=== PATIENT | female | born 1985 | race Caucasian/White ===

== ENCOUNTER 2023-10-12 19:49 | Emergency (ER) | payer OTHER, SELFPAY ==
[2023-10-12 20:30] VITALS: BP 134/83; PULSE 74; RESP 12; TEMP 37.9; O2SAT 95; BMI 28.1
--- NOTE | 2023-10-12 20:51 | XR_ITS ---
Patient: HARINDER GUEVARA Facility:?[facility] RIS Patient ID:?[id number] Site Patient ID:?[id number]. Site :?[id number] Study:?XRay-Chest 2 VIEW-10/12/2023 9:01:54 PM Ordering Physician:?DR. AMEZQUITA Final Report: INDICATION: Cough TECHNIQUE: Chest 2 views. COMPARISON: None. FINDINGS: Cardiovascular and mediastinum: Heart size and vasculature are normal in caliber and appearance. Lungs and pleural spaces: Lungs are clear. No sign of infiltrate or mass. No sign of pleural effusion. No pneumothorax. Bones and soft tissues: No significant findings. IMPRESSION: No acute or significant findings. Dictated by Flakito Grace MD @ 10/12/2023 9:25:37 PM Signed by:?Flakito Grace MD @10/12/2023 9:25:37 PM (Electronic Signature)
--- OUTSIDE RECORDS SUMMARY | 2023-10-12 21:04 | XMS_ITS | Clinical Summary ---
Author Name Unknown Organization [facility] Address [address], [place] [address] Care Team Providers Care Embroidery Designer Name Role Phone Truong Dueñas MD Primary Care Provider [phone] Source Comments You are receiving this document as you are listed as the primary care provider,follow-up provider, or the patient has been referred to you for consultation.This is in compliance with the Medicare and[facility] E[facility] Incentive [facility],which states Providers who transition their patient to another setting of careor provider of care or refers their patient to another provider of care shouldprovide summary care record for each transition of care or referral. [facility] Allergies No known active allergies Medications Medication Sig Dispensed Refills Start Date End Date Status naproxen sodium (ALEVE) 220 MG tablet Take 1 tablet by mouth 2 times daily as needed. LW Addl Instr:Take with food. 02/08/2010 Active unknown medication Indications: PN: 02/08/2010 Active DRUG NOT IN COMPUTER LW Comment:vitamin d 100mg 02/08/2010 Active Cholecalciferol (VITAMIN D3) 5000 units TABS Take by mouth. 05/09/2017 Active Active Problems No known active problems Social History Tobacco Use Types Packs/Day Years Used Date Smoking Tobacco: Never Smokeless Tobacco: Never Alcohol Use Standard Drinks/Week Comments No 0 (1 standard drink = 0.6 oz pur e alcohol) Sex and Gender Information Value Date Recorded Sex Assigned at Not on file Gender Identity Not on file Sexual Orientation Not on file Last Filed Vital Signs Vital Sign Reading Time Taken Comments Blood Pressure 108/70 12/20/2017 4:42 PM CDT Pulse - - Temperature 36.6 ??C (97.8 ??F) 02/07/2022 12:47 PM C DT Respiratory Rate - - Oxygen Saturation - - Inhaled Oxygen Concentration - - Weight 86.2 kg (190 lb) 02/07/2022 12:47 PM CDT Height 167.6 cm (5' 6) 02/07/2022 12:47 PM CDT Body Mass Index 30.67 02/07/2022 12:47 PM CDT Plan of Treatment Health Maintenance Due Date Last Done Comments Cervical Cancer Screening Due 1985 Hep C Screening (Preventive Services) 1985 HIV Screening (Preventive Services) 2000 Adult Preventive Visit 01/08/2002 HepB (1) 01/08/2003 COVID-19 Vaccine ( - season) 2023 05/05/2021 Influenza (#1) 2023 03/09/2018, 02/12, 05/10/2016, Additional history exists DTaP/Tdap/Td (4 - Tdap) 01/04/2027 01/05/20 17, 02/15/2013, 10/20/2005 Zoster/Shingles (1 of 2) 01/08/2034 HPV Vaccine Aged Out No longer eligi ble based on patient's age to complete this topic HepA Aged Out No longer eligi ble based on patient's age to complete this topic Hib Aged Out No longer eligi ble based on patient's age to complete this topic IPV (Polio) Aged Out No longer eligi ble based on patient's age to complete this topic MCV4 Aged Out No longer eligi ble based on patient's age to complete this topic Pneumococcal Aged Out No longer eligi ble based on patient's age to complete this topic Care Teams Embroidery Designer Relationship Specialty Start Date End Date Truong Dueñas MD [facility] [place] [address] PCP - General Family Practice 12/20/17
--- OUTSIDE RECORDS SUMMARY | 2023-10-12 21:05 | XMS_ITS | Data Portability ---
Author Name Unknown Address [address] [place] [address] Phone [phone] Organization [place] NURSE INFORMATICS EDUCATOR, [id number] [facility] Address [address] [place] [address] Assessment Encounter Date Assessment Date Assessment LastModified by Organization Details LastModified Time 04/15/2021 04/15/2021 I spent a total of 30 minutes providing care for this patient including: preparing to see the patient, obtaining a medical history, completing a medically appropriate physical exam, completing documentation of visit information and plans in the EMR, counseling the patient and/or caregiver regarding her diagnosis, treatment options and follow up plans, as well as any necessary communication of subsequent test results to the patient, reviewing medical records, reviewing test results. ktoft Not available 04/16/2021 20:38:37 05/22/2021 05/22/2021 I spent a total of 35 minutes providing care for this patient including: preparing to see the patient, obtaining a medical history, completing a medically appropriate physical exam, completing documentation of visit information and plans in the EMR, counseling the patient and/or caregiver regarding her diagnosis, treatment options and follow up plans, as well as any necessary communication of subsequent test results to the patient, reviewing test results, reviewing medical records, reviewing consult notes ktoft Not available 05/22/2021 18:16:51 06/17/2021 06/17/2021 I spent a total of 30 minutes providing care for this patient including: preparing to see the patient, obtaining a medical history, completing a medically appropriate physical exam, completing documentation of visit information and plans in the EMR, counseling the patient and/or caregiver regarding her diagnosis, treatment options and follow up plans, as well as any necessary communication of subsequent test results to the patient, reviewing medical records, reviewing test results. ktoft Not available 06/18/2021 20:53:22 07/31/2021 07/31/2021 I spent a total of 10 minutes providing care for this patient including: preparing to see the patient, obtaining a medical history, completing a medically appropriate physical exam, completing documentation of visit information and plans in the EMR, counseling the patient and/or caregiver regarding her diagnosis, treatment options and follow up plans, as well as any necessary communication of subsequent test results to the patient, , , rroverud Not available 07/31/2021 16:03:29 03/24/2023 03/24/2023 I spent a total of 25 minutes providing care for this patient including: preparing to see the patient, obtaining a medical history, completing a medically appropriate physical exam, completing documentation of visit information and plans in the EMR, counseling the patient and/or caregiver regarding her diagnosis, treatment options and follow up plans, as well as any necessary communication of subsequent test results to the patient, , , rroverud Not available 03/24/2023 15:39:13 07/07/2023 07/07/2023 I spent a total of 20 minutes providing care for this patient including: preparing to see the patient, obtaining a medical history, completing a medically appropriate physical exam, completing documentation of visit information and plans in the EMR, counseling the patient and/or caregiver regarding her diagnosis, treatment options and follow up plans, as well as any necessary communication of subsequent test results to the patient, , , rroverud Not available 07/07/2023 15:14:42 Plan of Treatment Reminders Order Date Submit Date Provider Last Modified By Organization Details Last Modified Time Details Appointments None recorded. Lab bacterial vaginosis + vaginitis panel, vaginal 2023 024 [id number], [address] [facility], [address], [place], [address], 4 17:18:36 TSH, serum or plasma 2023 024 [facility], [address] [place] [address], [address], [place], [address], 4 15:10:34 hemoglobin A1c, QN, blood 2023 024 [facility], [address] [facility], [address], [place], [address], 4 15:10:32 bacterial vaginosis + vaginitis panel, vaginal 2023 024 [place] [id number] aska, [address], [address], [place], [address], 4 14:30:50 CT + NG DNA, PCR, unspecified specimen [address] aska, [address] [facility], [address], [place], [address], 3 16:34:27 HIV 1+2 AB + HIV 1 p24 Ag, qualitative immunoassay , serum 2022 023 [facility], [address] [facility], [address], [place], [address], 3 17:36:27 treponema pallidum Ab, qualitative , serum 2022 023 [facility], [address] [facility], [address], [place], [address], 3 17:36:26 bacterial vaginosis + vaginitis panel, vaginal [address] aska, [address], [address], [place], [address], 3 15:19:42 pathology study 2020 021 [facility], [address], [place], [address], 1 18:08:14 thyroid cascade, serum 2020 [facility], [address] [place], [address], 18:05:58 CMP, serum or plasma 2020 [facility], [address] [place], [address], 18:05:59 CBC 2020 [facility], [address] [place], [address], 18:05:57 iron panel, serum or plasma 2020 [facility], [address] [place], [address], 18:05:58 HPV DNA, high-risk 2020 [facility], [address] [place], [address], 08:52:57 pathology study 2020 [facility], [address] [place], [address], 17:03:58 culture, urine 2020 021 [facility], [address] [place], [address], 08:46:32 bacterial vaginosis + vaginitis panel, vaginal 2020 021 ktoft [id number] [place], [address] [facility], [address], [place], [address], 1 13:13:55 pathology study 2020 021 [facility], [address] [place], [address], 1 14:10:29 pathology study 2020 021 [facility], [address] [place], [address], 1 16:10:14 unlisted lab - HPV high risk DNA with 16/18 genotyping 2020 021 [facility], [address], [place], [address], 1 17:21:20 pap, LB 2020 021 [facility], [address], [place], [address], 1 17:21:22 Referral None recorded. Procedures None recorded. Surgeries robotic assisted hysterectom y with salpingecto my (SURG) 2020 022 [facility], [address] [place] [address] , [address], [place], [address], 2 16:19:05 Imaging US, pelvis 2022 023 [email or web address] [id number] aska, [address] [facility], [address], [place], [address], 3 15:29:55 Medication Orders Flagyl 500 mg tablet 2023 024 [email or web address] 1 [id number], [address] [place] [address] 3 , [place], [address], 4 09:42:14 oxycodone 5 mg tablet 2021 022 [id number] [id number], [address], [address], 09:04:19 spironolact one 50 mg tablet 2020 021 k[facility], [address] [facility] [address] [place], [address], 12:17:55 Patient TargetsNo targets recorded. Patient Instructions Encounter Date Encounter Id Patient Instructions Last Modified By Organization Details Last Modified Time 06/18/2020 [id number] - Encouraged breast self-awareness and monthly breast exams. - Calcium and vitamin D intake discussed. - Encouraged regular exercise. - Discussed cervical cancer screening guidelines. lucero Not available 06/18/2020 10:03:23 Reason for Referral None Reported. Results Created Date Observation Date Name Description Value Unit Range Abnormal Flag LastModifiedBy Organization Detail LastModifiedTime 06/18/1906/18/2020 HPV DNA, high- risk HPV high risk type 16 positi ve for HPV type 16. negati ve for HPV type 16. abnormal Not Available [facility] [address] [place], [address], 06/25/2020 17:21:19 06/18/19 21 06/18/2020 HPV DNA, high- risk HPV high risk type 18 negati ve for HPV type 18. negati ve for HPV type 18. Not Available [facility] [address] [place], [address], 06/25/2020 17:21:19 06/18/19 21 06/18/2020 HPV DNA, high- risk HPV other high risk types positi ve for one or more other high risk HPV types. negati ve for other high risk HPV types. abnormal Not Available [facility] [address] [place], [address], 06/25/2020 17:21:19 06/18/19 21 06/18/2020 pap, LB case report see note: abnorm al abnormal Not Available [facility] [address] [place], [address], 06/25/2020 17:21:22 07/11/19 21 07/11/2020 patho logy study case report see note Not Available [facility] [address] [place], [address], 07/14/2020 16:10:13 07/11/19 21 07/11/2020 pregn daniella test, urine Unknown Analyte negati ve Not Available [id number] aska [address] [facility] [address], [place], [address], 07/11/2020 12:29:01 08/14/19 21 08/13/2020 patho logy study case report see note Not Available [facility] [address], [place], [address], 08/19/2020 14:10:29 08/14/19 21 08/13/2020 pregn daniella test, urine Unknown Analyte negati ve Not Available [address], [place], [address], 08/13/2020 15:43:34 08/19/19 21 08/18/2020 cultu re, urine cult-urine mixed itzel with 3 or more organi sms presen t. each organi sm under 10,000 cfu/mL . Not Available [facility] [address], [place], [address], 08/20/2020 08:46:31 08/19/19 21 08/18/2020 bacte rial vagin osis + vagin itis panel , vagin al gardnerella positi ve negati ve abnormal Not Available [id number] [facility] [address] [place] [address] [address], [place], [address], 08/18/2020 13:13:49 08/19/19 21 08/18/2020 bacte rial vagin osis + vagin itis panel , vagin al trichomonas negati ve negati ve normal Not Available [id number] gracielausc [facility] [employer] [address], [place], [address], 08/18/2020 13:13:49 08/19/19 21 08/18/2020 bacte rial vagin osis + vagin itis panel , vagin al saleem negati ve negati ve normal Not Available [id number] [place] [address] [employer] [address], [place], [address], 08/18/2020 13:13:49 08/19/19 21 08/18/2020 urina lysis , dipst ick Unknown Analyte Clean catch Not Available [id number] [place] [address] [employer] [address], [place], [address], 08/18/2020 13:09:48 08/19/19 21 08/18/2020 urina lysis , dipst ick Unknown Analyte Negati ve Not Available [id number] [place] [address] [employer] [address], [place], [address], 08/18/2020 13:09:48 08/19/19 21 08/18/2020 urina lysis , dipst ick Unknown Analyte Negati ve Not Available [id number] [place] [address] [employer] [address], [place], [address], 08/18/2020 13:09:48 08/19/19 21 08/18/2020 urina lysis , dipst ick Unknown Analyte Negati ve Not Available [id number] [place] [address] [employer] [address], [place], [address], 08/18/2020 13:09:48 08/19/19 21 08/18/2020 urina lysis , dipst ick Unknown Analyte 1.025 Not Available [id number] chani [facility] [employer] [address], [place], [address], 08/18/2020 13:09:48 08/19/19 21 08/18/2020 urina lysis , dipst ick Unknown Analyte small Not Available [id number]_ mi [place] [address] [employer] [address], [place], [address], 08/18/2020 13:09:48 08/19/19 21 08/18/2020 urina lysis , dipst ick Unknown Analyte 6.0 Not Available [id number] [address] [employer] [address], [place], [address], 08/18/2020 13:09:48 08/19/19 21 08/18/2020 urina lysis , dipst ick Unknown Analyte Negati ve Not Available [place] [address] [employer] [address], [place], [address], 08/18/2020 13:09:48 08/19/19 21 08/18/2020 urina lysis , dipst ick Unknown Analyte 0.2 Not Available [place] [address] [employer] [address], [place], [address], 08/18/2020 13:09:48 08/19/19 21 08/18/2020 urina lysis , dipst ick Unknown Analyte negati ve Not Available [place] [address] [employer] [address], [place], [address], 08/18/2020 13:09:48 08/19/19 21 08/18/2020 urina lysis , dipst ick Unknown Analyte trace Not Available [place] [address] [employer] [address], [place], [address], 08/18/2020 13:09:48 08/19/19 21 08/18/2020 urina lysis , dipst ick Unknown Analyte yellow Not Available Betty Cordon [employer] [address], [place], [address], 08/18/2020 13:09:48 08/19/19 21 08/18/2020 urina lysis , dipst ick Unknown Analyte clear Not Available Betty wi gracielausc [facility] [address] [place], [place] [address] [address], [place], [address], 08/18/2020 13:09:48 04/15/20 21 04/15/2021 CBC (HGB, HCT,W BC,RB C,SUE TELET ) WBC 5.8 K/uL 4.3-10 .8 Not Available [facility] [address] [place], [address], 04/15/2021 18:05:57 04/15/20 21 04/15/2021 CBC (HGB, HCT,W BC,RB C,SUE TELET ) RBC 4.71 M/uL 4.20-5 .40 Not Available [facility] [address] [place], [address], 04/15/2021 18:05:57 04/15/20 21 04/15/2021 CBC (HGB, HCT,W BC,RB C,SUE TELET ) hemoglobin 13.9 gm/dL 12.0-1 6.0 Not Available [facility] [address] [place], [address], 04/15/2021 18:05:57 04/15/20 21 04/15/2021 CBC (HGB, HCT,W BC,RB C,SUE TELET ) hematocrit 42.7 % 36.0-4 8.0 Not Available [facility] [address] [place], [address], 04/15/2021 18:05:57 04/15/20 21 04/15/2021 CBC (HGB, HCT,W BC,RB C,SUE TELET ) MCV 91 fL 80-100 Not Available [facility] [address] [place], [address], 04/15/2021 18:05:57 04/15/20 21 04/15/2021 CBC (HGB, HCT,W BC,RB C,SUE TELET ) MCH 30 pg 27-33 Not Available [facility] [address] [place], [address], 04/15/2021 18:05:57 04/15/20 21 04/15/2021 CBC (HGB, HCT,W BC,RB C,SUE TELET ) MCHC 33 gm/dL 33-36 Not Available [facility] [address] [place], [address], 04/15/2021 18:05:57 04/15/20 21 04/15/2021 CBC (HGB, HCT,W BC,RB C,SUE TELET ) RDW 12.2 % 11.5-1 4.5 Not Available [place] [address] [place], [address], 04/15/2021 18:05:57 04/15/20 21 04/15/2021 CBC (HGB, HCT,W BC,RB C,SUE TELET ) platelet count 221 K/uL 150-40 0 Not Available [facility] [address] [place], [address], 04/15/2021 18:05:57 04/15/20 21 04/15/2021 CBC (HGB, HCT,W BC,RB C,SUE TELET ) MPV 10.0 6.5-12 Not Available [facility] [address] [place], [address], 04/15/2021 18:05:57 04/15/20 21 04/15/2021 IRON STATU S (INCL UDES IRON, TRANS JASMYN N AND JASMYN TIN) TIBC 305 ug/dL 250-45 0 Not Available [facility] [address] [place], [address], 04/15/2021 18:05:58 04/15/2004/15/2021 IRON STATU S (INCL UDES IRON, TRANS JASMYN N AND JASMYN TIN) iron saturation 47 % 15-50 Not Available [facility] [address] [place], [address], 04/15/2021 18:05:58 04/15/20 21 04/15/2021 IRON STATU S (INCL UDES IRON, TRANS JASMYN N AND JASMYN TIN) ferritin, serum 67 NG/mL 8-388 Not Available [facility] [address] [place], [address], 04/15/2021 18:05:58 04/15/20 21 04/15/2021 IRON STATU S (INCL UDES IRON, TRANS JASMYN N AND JASMYN TIN) iron 142 ug/dL 50-170 Not Available [facility] [address] [place], [address], 04/15/2021 18:05:58 04/15/20 21 04/15/2021 IRON STATU S (INCL UDES IRON, TRANS JASMYN N AND JASMYN TIN) transferrin, serum 234 mg/dL 200-36 0 Not Available [facility] [address] [place], [address], 04/15/2021 18:05:58 04/15/20 21 04/15/2021 THYRO ID CASCA DE TSH 0.738 uIU/m L 0.358- 3.740 Not Available [facility] [address] [place], [address], 04/15/2021 18:05:58 04/15/20 21 04/15/2021 COMPR EHENS SHAYLA METAB OLIC PANEL sodium 141 mmol/ L 136-14 5 Not Available [facility] [address] [place], [address], 04/15/2021 18:05:59 04/15/20 21 04/15/2021 COMPR EHENS SHAYLA METAB OLIC PANEL potassium 4.4 mmol/ L 3.5-5. 1 Not Available [facility] [address] [place], [address], 04/15/2021 18:05:59 04/15/20 21 04/15/2021 COMPR EHENS SHAYLA METAB OLIC PANEL chloride 109 mmol/ L 98-112 Not Available [facility] [address] [place], [address], 04/15/2021 18:05:59 04/15/20 21 04/15/2021 COMPR EHENS SHAYLA METAB OLIC PANEL carbon dioxide 29 mmol/ L 21-32 Not Available [facility] [address] [place], [address], 04/15/2021 18:05:59 04/15/20 21 04/15/2021 COMPR EHENS SHAYLA METAB OLIC PANEL BUN (urea nitro) 12 mg/dL 7-24 Not Available [facility] [address] [place], [address], 04/15/2021 18:05:59 04/15/20 21 04/15/2021 COMPR EHENS SHAYLA METAB OLIC PANEL creatinine 1.13 mg/dL 0.55-1 .02 high Not Available [facility] [address] [place], [address], 04/15/2021 18:05:59 04/15/20 21 04/15/2021 COMPR EHENS SHAYLA METAB OLIC PANEL est GFR (CKD-epi) >60 mL/mi n >60 Not Available [facility] [address] [place], [address], 04/15/2021 18:05:59 04/15/20 21 04/15/2021 COMPR EHENS SHAYLA METAB OLIC PANEL est GFR if AM >60 mL/mi n >60 Not Available [facility] [address] [place], [address], 04/15/2021 18:05:59 04/15/20 21 04/15/2021 COMPR EHENS SHAYLA METAB OLIC PANEL glucose 75 mg/dL 74-106 Not Available [facility] [address], [address], 04/15/2021 18:05:59 04/15/20 21 04/15/2021 COMPR EHENS SHAYLA METAB OLIC PANEL calcium, serum 9.2 mg/dL 8.5-10 .1 Not Available [facility] [address] [place], [address], 04/15/2021 18:05:59 04/15/20 21 04/15/2021 COMPR EHENS SHAYLA METAB OLIC PANEL anion gap 3.0 mmol/ L 0.0-15 .0 Not Available [facility] [address] [place], [address], 04/15/2021 18:05:59 04/15/20 21 04/15/2021 COMPR EHENS SHAYLA METAB OLIC PANEL albumin 3.9 g/dL 3.4-5. 0 Not Available [facility] [address] [place], [address], 04/15/2021 18:05:59 04/15/20 21 04/15/2021 COMPR EHENS SHAYLA METAB OLIC PANEL bilirubin-to frankie 0.5 mg/dL 0.2-1. 0 Not Available [facility] [address] [place], [address], 04/15/2021 18:05:59 04/15/20 21 04/15/2021 COMPR EHENS SHAYLA METAB OLIC PANEL alkaline P'tase 46 IU/L 45-117 Not Available [facility] [address] [place], [address], 04/15/2021 18:05:59 04/15/20 21 04/15/2021 COMPR EHENS SHAYLA METAB OLIC PANEL protein total 7.7 g/dL 6.4-8. 2 Not Available [facility] [address] [place], [address], 04/15/2021 18:05:59 04/15/20 21 04/15/2021 COMPR EHENS SHAYLA METAB OLIC PANEL AST (SGOT) 11 IU/L 12-37 low Not Available [facility] [address] [place], [address], 04/15/2021 18:05:59 04/15/20 21 04/15/2021 COMPR EHENS SHAYLA METAB OLIC PANEL ALT (SGPT) 17 IU/L 12-68 Not Available [facility] [address] [place], [address], 04/15/2021 18:05:59 04/15/20 21 04/15/2021 SURGI REBEKAH PATHO LOGY case report see note Not Available [facility] [address] [place], [address], 04/16/2021 17:03:57 04/15/20 21 04/15/2021 HPV HIGH RISK DNA WITH 16/18 GENOT YPING HPV high risk type 16 positi ve for HPV type 16. negati ve for HPV type 16. abnormal Not Available [facility] [address], [address], 04/17/2021 08:52:57 04/15/20 21 04/15/2021 HPV HIGH RISK DNA WITH 16/18 GENOT YPING HPV high risk type 18 negati ve for HPV type 18. negati ve for HPV type 18. Not Available [facility] [address] [place], [address], 04/17/2021 08:52:57 04/15/20 21 04/15/2021 HPV HIGH RISK DNA WITH 16/18 GENOT YPING HPV other high risk types positi ve for one or more other high risk HPV types. negati ve for other high risk HPV types. abnormal Not Available [facility] [address] [place], [address], 04/17/2021 08:52:57 05/22/20 21 05/26/2021 PATHO MELISSA Kimbrough commen t Not Available [facility] [address] [place], [address], 05/26/2021 18:08:14 05/22/20 21 05/26/2021 PATHO MELISSA Kimbrough commen t Not Available [facility] [address] [place], [address], 05/26/2021 18:08:14 05/22/20 21 05/26/2021 PATHO MELISSA Mijares . commen t Not Available [facility] [address] [place], [address], 05/26/2021 18:08:14 05/22/20 21 05/26/2021 PATHO LOGY HIRAL Kimbrough commen t Not Available [facility] [address], [place], [address], 05/26/2021 18:08:14 05/22/20 21 05/26/2021 PATHO LOGY HIRAL Kimbrough commen t Not Available [facility] [address], [place], [address], 05/26/2021 18:08:14 05/22/20 21 05/26/2021 PATHO LOGY HIRAL Kimbrough commen t Not Available [facility] [address], [place], [address], 05/26/2021 18:08:14 05/22/20 21 05/22/2021 pregn daniella test, urine Unknown Analyte negati ve Not Available [id number] aska [address], [address], 05/22/2021 14:00:30 03/24/2003/24/2023 TREPO NEMA ABS W REFLE X TO RPR AND CONF OR TITER treponema antibody total nonrea ctive nonrea ctive Not Available [address], [place], [address], 03/25/2023 17:36:26 03/24/20 23 03/24/2023 HIV ANTIG EN ANTIB KEISHA COMBO CASCA DE HIV antigen antibody combo nonrea ctive nonrea ctive Not Available [address], [place], [address], 03/25/2023 17:36:27 03/25/20 23 03/25/2023 CT + NG DNA, PCR, unspe cifie d speci men source endoce rvical Not Available [id number], [place], [address], 03/24/2023 14:42:59 03/25/2003/25/2023 CT + NG DNA, PCR, unspe cifie d speci men CT not detect ed not detect ed normal Not Available [address], [place], [address], 03/24/2023 14:42:59 03/25/2003/25/2023 CT + NG DNA, PCR, unspe cifie d speci men GC not detect ed not detect ed normal Not Available [address], [place], [address], 03/24/2023 14:42:59 03/25/2003/25/2023 bacte rial vagin osis + vagin itis panel , vagin al bacterial vaginosis positi ve negati ve abnormal Not Available [address] [place], [place], [address], 03/24/2023 15:06:02 03/25/2003/25/2023 bacte rial vagin osis + vagin itis panel , vagin al saleem group negati ve negati ve normal Not Available [address], [address], 03/24/2023 15:06:02 03/25/2003/25/2023 bacte rial vagin osis + vagin itis panel , vagin al saleem glab-krus negati ve negati ve normal Not Available [address], [place], [address], 03/24/2023 15:06:02 10/13/20 23 03/25/2023 bacte rial vagin osis + vagin itis panel , vagin al trichomonas negati ve negati ve normal Not Available [address], [place], [address], 03/24/2023 15:06:02 07/07/19 24 07/07/2023 HEMOG LOBIN A1C hemoglobin A1C 5.0 % <5.7 Not Available [address], [place], [address], 07/08/2023 15:10:32 07/07/19 24 07/07/2023 TSH WITH REFLE X TO FREE T4 TSH 1.09 uIU/m L 0.30-4 .20 Not Available [address], [place], [address], 07/08/2023 15:10:33 07/07/19 24 07/07/2023 bacte rial vagin osis + vagin itis panel , vagin al bacterial vaginosis positi ve negati ve abnormal Not Available [address], [place], [address], 07/07/2023 12:30:56 07/07/19 24 07/07/2023 bacte rial vagin osis + vagin itis panel , vagin al saleem group negati ve negati ve normal Not Available [address], [place], [address], 07/07/2023 12:30:56 07/07/19 24 07/07/2023 bacte rial vagin osis + vagin itis panel , vagin al saleem glab-krus negati ve negati ve normal Not Available [address], [place], [address], 07/07/2023 12:30:56 07/07/19 24 07/07/2023 bacte rial vagin osis + vagin itis panel , vagin al trichomonas negati ve negati ve normal Not Available [address] [facility] [address], [place], [address], 07/07/2023 12:30:56 09/12/19 24 09/12/2023 bacte rial vagin osis + vagin itis panel , vagin al bacterial vaginosis negati ve negati ve normal Not Available [address] [facility] [address], [place], [address], 09/12/2023 15:34:32 09/12/19 24 09/12/2023 bacte rial vagin osis + vagin itis panel , vagin al saleem group negati ve negati ve normal Not Available [address] [facility] [address], [place], [address], 09/12/2023 15:34:32 09/12/19 24 09/12/2023 bacte rial vagin osis + vagin itis panel , vagin al trichomonas negati ve negati ve normal Not Available [id number] [place] [address] [address], [place], [address], 09/12/2023 15:34:32 03/24/20 23 03/24/2023 , aaron Au observ ation record ed. [email or web address] Natalie [address], [place], [address], 03/24/2023 15:33:29 Result Notes None recorded. Problems Name Status Onset Date Resolution Date Notes Provider Name and Address Organization Details Recorded Time Uses IUD (intrauterine device) contraception Completed 201307/17/2018 PEG BAÑUELOS PA-C [address] [facility],[address], [place], [address] , [facility] NURSE INFORMATICS EDUCATOR 1 11:07:12 Depressive disorder Active 2018 Not Available [facility] 0 14:43:16 Hirsutism Active 2020 spironolacton e alexandra BAÑUELOS PA-C [address] [facility],[address], [place], [address] , [facility] NURSE INFORMATICS EDUCATOR 1 11:10:37 Problem Notes None recorded. Procedures Surgical History Date Name Laterality Status Provider Name and Address Organization Details Recorded Time 06/25/19 22 ROBOTIC ASSISTED HYSTERECTOMY WITH SALPINGECTOMY (SURG) completed Nicole alonso [facility] NURSE INFORMATICS EDUCATOR 07/10/2021 08:44:17 06/25/19 22 ROBOTIC ASSISTED HYSTERECTOMY WITH SALPINGECTOMY (SURG) completed Nicole alonso [facility] NURSE INFORMATICS EDUCATOR 07/22/2021 08:00:36 05/22/20 21 Colposcopy (vaginal & cervical) ([facility]) [place] [id number] [facility], [place], [address], [facility] NURSE INFORMATICS EDUCATOR 05/22/2021 15:12:39 04/15/20 21 Endocervical Curettage ([facility]) [place] [id number] [facility],[address], [place], [address], [facility] NURSE INFORMATICS EDUCATOR 04/15/2021 12:30:54 04/15/20 21 IUD Removal Procedure Note ([facility]) [place] [id number] [address] [facility],[address], [place], [address], [facility] NURSE INFORMATICS EDUCATOR 04/15/2021 12:26:14 08/14/19 21 LEEP Procedure Note ([facility]) [place] [id number] [address] [facility],[address], [place], [address], [facility] NURSE INFORMATICS EDUCATOR 08/13/2020 15:05:45 08/14/19 21 LEEP completed Kelly alonso [facility] NURSE INFORMATICS EDUCATOR 08/13/2020 16:35:38 07/11/19 21 Colposcopy (vaginal & cervical) ([facility]) [place] [id number] [facility],[address], [place], [address], [facility] NURSE INFORMATICS EDUCATOR 07/12/2020 16:42:49 06/18/19 21 Date of Last Pap Smear completed PEG BAÑUELOS PA-C [address] [facility],[address], [place], [address], [facility] NURSE INFORMATICS EDUCATOR 06/26/2020 11:30:21 01/16/20 14 tonsillectomy completed Not Available [facility] 2019 15:44:37 05/02/20 13 spontaneous unassisted delivery, medical personnel present completed Not Available [facility] 0 15:44:37 [facility] surgery procedure completed Not Available [facility] 04/15/2021 11:33:33 colposcopy completed Enid alonso, [facility] NURSE INFORMATICS EDUCATOR 05/22/2021 14:01:39 Imaging Results Imaging Date Name Status LastModified by Organiz ation Details LastModified Time 03/24/2023 US, pelvis completed [email or web address] Natalie [address], [place], [address], 03/24/2023 15:33:29 Procedure Notes None recorded. Medical Equipment None Reported. Allergies No known drug allergies Medications Name Sig Start Date Stop Date Status Note LastModified by Organization Details LastModified Time Mirena 21 mcg/24 hr (up to 8 years) 52 mg intrauteri ne device Take by intrauter ine route. 05/22 completed Not Available Not Available Not Available trazodone 50 mg tablet TAKE 1 TABLET BY MOUTH AT BEDTIME 03/24 completed Not Available Not Available Not Available metronidaz ole 0.75 % (37.5 mg/5 gram) vaginal gel INSERT 1 APPLICATO RFUL VAGINALLY EVERY DAY FOR 5 DAYS 07/07 completed Not Available Not Available Not Available metronidaz ole 500 mg tablet TAKE 1 TABLET BY MOUTH TWICE A DAY FOR 7 DAYS 09/11 completed Not Available Not Available Not Available amoxicilli n 500 mg tablet TAKE 1 TABLET BY MOUTH TWICE A DAY FOR 7 DAYS 03/24 completed Not Available Not Available Not Available lamotrigin e 25 mg tablet 03/24 completed Not Available Not Available Not Available Protopic 0.1 % topical ointment 04/15 completed Not Available Not Available Not Available ofloxacin 0.3 % ear drops ADMINISTE R 10 DROPS TO THE RIGHT EAR 2 (TWO) TIMES A DAY FOR 14 DAYS 03/24 completed Not Available Not Available Not Available lorazepam 0.5 mg tablet 05/22 completed Not Available Not Available Not Available benzonatat e 100 mg capsule 05/22 completed Not Available Not Available Not Available cephalexin 500 mg capsule 07/08 completed Not Available Not Available Not Available Lamictal 150 mg tablet 03/24 completed Takes a total of 350 mg daily Not Available Not Available Not Available clotrimazo le 1 % topical cream 04/15 completed Not Available Not Available Not Available doxycyclin e hyclate 100 mg tablet 04/15 completed Not Available Not Available Not Available lamotrigin e 100 mg tablet TAKE 3 TABLETS (300 MG) BY MOUTH ONCE DAILY. 03/24 completed Not Available Not Available Not Available spironolac tone 50 mg tablet TAKE 1 TABLET BY MOUTH EVERY DAY active Not Available Not Available No t Available oxycodone 5 mg tablet TAKE 1 TABLET BY MOUTH EVERY 4 HOURS active Not Available Not Available No t Available Vitamin D3 03/24 completed Not Available Not Available Not Available vitamin B comp and C no.3 03/24 completed Not Available Not Available Not Available bimatopros t 0.03 % drops with applicator , eyelash base APPLY 1 DROP BY BASE OF THE EYELASHES ONCE DAILY. active Not Available Not Available No t Available Probiotic active Not Available Not Verónica ilable Not Available ID NOW COVID-19 Test Kit TEST DIRECTED TODAY 07/08 completed Not Available Not Available Not Available COVID-19 test specimen collection TEST DIRECTED 04/15 completed Not Available Not Available Not Available Vitals Date Recorded Body height Body mass index (BMI) Body weight Systolic blood pressure Diastolic blood pressure Provider Name and Address Organization Details Last Updated DateTime 04/15/2021 165.1 cm 28.3 kg/m2 35908.98 g 110 mm[Hg] 70 mm[Hg] Kelly Garciasmarlakarol alonso [facility] NURSE INFORMATICS EDUCATOR 1 11:57:39 Date Recorded Body height Systolic blood pressure Diastolic blood pressure Provider Name and Address Organization Details Last Updated DateTime 05/15/2021 165.1 cm 122 mm[Hg] 72 mm[Hg] Kelly Garciasmarlakarol alonso [facility] NURSE INFORMATICS EDUCATOR 05/15/2021 14:08:16 Date Recorded Body height Body mass index (BMI) Body weight Systolic blood pressure Diastolic blood pressure Provider Name and Address Organization Details Last Updated DateTime 05/22/2021 165.1 cm 28.1 kg/m2 08464.11 g 126 mm[Hg] 82 mm[Hg] Enid Dent [facility] NURSE INFORMATICS EDUCATOR 14:02:52 Date Recorded Body height Body mass index (BMI) Body weight Heart rate Respiratory rate Systolic blood pressure Diastolic blood pressure Provider Name and Address Organization Details Last Updated DateTime 2 165.1 cm 28.8 kg/m2 80571.4 8 g 62 /min 18 /min 126 mm[Hg] 80 mm[Hg] Angie Dent [facility] N[facility] INFORMATICS EDUC[facility] 2 15:34:22 Date Recorded Body height Body mass index (BMI) Body weight Systolic blood pressure Diastolic blood pressure Provider Name and Address Organization Details Last Updated DateTime 07/08/2021 165.1 cm 28.3 kg/m2 32510.98 g 120 mm[Hg] 72 mm[Hg] Kelly Katerinebelkys celeste [facility] NURSE INFORMATICS EDUCATOR 2 11:46:57 Date Recorded Body height Body mass index (BMI) Body weight Systolic blood pressure Diastolic blood pressure Provider Name and Address Organization Details Last Updated DateTime 07/31/2021 165.1 cm 28.5 kg/m2 61877.3 g 122 mm[Hg] 80 mm[Hg] Enid Dent TERMED [facility] NURSE INFORMATICS EDUCATOR 2 14:52:48 Date Recorded Body height Body mass index (BMI) Body weight Systolic blood pressure Diastolic blood pressure Provider Name and Address Organization Details Last Updated DateTime 08/21/2021 165.1 cm 27.9 kg/m2 59449.8 g 110 mm[Hg] 76 mm[Hg] Kelly Beltre celeste [facility] NURSE INFORMATICS EDUCATOR 2 10:18:31 Date Recorded Body weight Body mass index (BMI) Body height Provider Name and Address Organization Details Last Updated DateTime 03/24/2023 37510.72 g 25.4 kg/m2 167.64 cm Pattie Mayberry celeste [facility] NURSE INFORMATICS EDUCATOR 03/24/2023 14:24:54 Date Recorded Body height Body mass index (BMI) Body weight Systolic blood pressure Diastolic blood pressure Provider Name and Address Organization Details Last Updated DateTime 07/07/2023 167.64 cm 29.7 kg/m2 78915.71 g 116 mm[Hg] 62 mm[Hg] Josefina Silas celeste [facility] NURSE INFORMATICS EDUCATOR 4 12:07:09 Date Recorded Body height Body mass index (BMI) Body weight Systolic blood pressure Diastolic blood pressure Provider Name and Address Organization Details Last Updated DateTime 09/12/2023 167.64 cm 28.8 kg/m2 24733.6 g 114 mm[Hg] 68 mm[Hg] Britta Lindajb celeste [facility] NURSE INFORMATICS EDUCATOR 4 15:22:01 Date Recorded Body height Body mass index (BMI) Body weight Systolic blood pressure Diastolic blood pressure Provider Name and Address Organization Details Last Updated DateTime 09/18/2012 165.1 cm 32.65 kg/m2 04882.82 2994 g 102 mm[Hg] 62 mm[Hg] Not Available [facility] 0 05:46:58 Date Recorded Body weight Body height Body mass index (BMI) Systolic blood pressure Diastolic blood pressure Provider Name and Address Organization Details Last Updated DateTime 05/16/2017 58662.77 319 g 165.1 cm 31.12 kg/m2 122 mm[Hg] 78 mm[Hg] Not Available [facility] 0 05:46:57 Date Recorded Body weight Body height Body mass index (BMI) Systolic blood pressure Diastolic blood pressure Provider Name and Address Organization Details Last Updated DateTime 05/07/2013 82430.74 6694 g 165.1 cm 34.31 kg/m2 122 mm[Hg] 74 mm[Hg] Not Available [facility] 0 05:46:59 Date Recorded Body height Body weight Body mass index (BMI) Systolic blood pressure Diastolic blood pressure Provider Name and Address Organization Details Last Updated DateTime 12/31/2013 165.1 cm 06869.96 9584 g 33.81 kg/m2 112 mm[Hg] 74 mm[Hg] Not Available [facility] 0 05:46:58 Date Recorded Body mass index (BMI) Body height Body weight Systolic blood pressure Diastolic blood pressure Provider Name and Address Organization Details Last Updated DateTime 03/23/2018 31.65 kg/m2 165.1 cm 73648.26 8774 g 110 mm[Hg] 70 mm[Hg] Not Available [facility] 0 05:46:59 Date Recorded Body weight Systolic blood pressure Diastolic blood pressure Provider Name and Address Organization Details Last Updated DateTime 12/20/2012 73161.6294 22 g 102 mm[Hg] 60 mm[Hg] Not Available [facility] 01/18/2020 05:46:57 Date Recorded Body mass index (BMI) Body height Body weight Systolic blood pressure Diastolic blood pressure Provider Name and Address Organization Details Last Updated DateTime 08/24/2016 32.22 kg/m2 165.1 cm 14426.48 2832 g 114 mm[Hg] 82 mm[Hg] Not Available [facility] 0 05:46:58 Date Recorded Body weight Body mass index (BMI) Body height Systolic blood pressure Diastolic blood pressure Provider Name and Address Organization Details Last Updated DateTime 08/04/2016 25626.73 504 g 31.95 kg/m2 165.1 cm 122 mm[Hg] 70 mm[Hg] Not Available [facility] 0 05:46:59 Date Recorded Body weight Body mass index (BMI) Body height Systolic blood pressure Diastolic blood pressure Provider Name and Address Organization Details Last Updated DateTime 02/11/2017 09938.65 5918 g 30.19 kg/m2 165.1 cm 110 mm[Hg] 62 mm[Hg] Not Available [facility] 0 05:46:58 Date Recorded Body weight Systolic blood pressure Diastolic blood pressure Provider Name and Address Organization Details Last Updated DateTime 11/15/2012 73426.7555 26 g 110 mm[Hg] 66 mm[Hg] Not Available [facility] 01/18/2020 05:46:58 Date Recorded Body weight Body height Body mass index (BMI) Systolic blood pressure Diastolic blood pressure Provider Name and Address Organization Details Last Updated DateTime 05/31/2013 23965.28 926 g 165.1 cm 32.95 kg/m2 116 mm[Hg] 78 mm[Hg] Not Available [facility] 0 05:46:59 Date Recorded Body height Body mass index (BMI) Body weight Systolic blood pressure Diastolic blood pressure Provider Name and Address Organization Details Last Updated DateTime 02/04/2014 165.1 cm 33.12 kg/m2 68010.88 163 g 102 mm[Hg] 64 mm[Hg] Not Available [facility] 0 05:46:57 Date Recorded Body weight Body height Body mass index (BMI) Systolic blood pressure Diastolic blood pressure Provider Name and Address Organization Details Last Updated DateTime 09/25/2012 61441.35 6728 g 165.1 cm 32.35 kg/m2 110 mm[Hg] 70 mm[Hg] Not Available [facility] 0 05:46:59 Date Recorded Body height Body mass index (BMI) Body weight Systolic blood pressure Diastolic blood pressure Provider Name and Address Organization Details Last Updated DateTime 07/12/2013 165.1 cm 32.95 kg/m2 93936.28 926 g 102 mm[Hg] 62 mm[Hg] Not Available [facility] 0 05:46:59 Date Recorded Body height Systolic blood pressure Diastolic blood pressure Provider Name and Address Organization Details Last Updated DateTime 02/07/2017 165.1 cm 122 mm[Hg] 76 mm[Hg] Not Available [facility] 01/18/2020 05:46:58 Date Recorded Body height Body weight Body mass index (BMI) Systolic blood pressure Diastolic blood pressure Provider Name and Address Organization Details Last Updated DateTime 07/31/2015 165.1 cm 87943.32 741 g 32.12 kg/m2 120 mm[Hg] 64 mm[Hg] Not Available [facility] 0 05:46:57 Date Recorded Body height Body weight Body mass index (BMI) Systolic blood pressure Diastolic blood pressure Provider Name and Address Organization Details Last Updated DateTime 09/27/2016 165.1 cm 77474.23 9456 g 31.42 kg/m2 112 mm[Hg] 76 mm[Hg] Not Available [facility] 0 05:46:58 Date Recorded Body height Body mass index (BMI) Body weight Systolic blood pressure Diastolic blood pressure Provider Name and Address Organization Details Last Updated DateTime 03/15/2017 165.1 cm 30.12 kg/m2 26815.21 897 g 122 mm[Hg] 76 mm[Hg] Not Available [facility] 0 05:46:58 Date Recorded Body height Body mass index (BMI) Body weight Systolic blood pressure Diastolic blood pressure Provider Name and Address Organization Details Last Updated DateTime 05/14/2013 165.1 cm 33.14 kg/m2 88481.60 0104 g 116 mm[Hg] 82 mm[Hg] Not Available [facility] 0 05:47:00 Date Recorded Body height Body mass index (BMI) Body weight Systolic blood pressure Diastolic blood pressure Provider Name and Address Organization Details Last Updated DateTime 07/09/2016 165.1 cm 31.78 kg/m2 91527.14 267 g 114 mm[Hg] 64 mm[Hg] Not Available [facility] 0 05:46:58 Date Recorded Body height Body weight Body mass index (BMI) Systolic blood pressure Diastolic blood pressure Provider Name and Address Organization Details Last Updated DateTime 02/10/2016 165.1 cm 28693.73 504 g 31.95 kg/m2 100 mm[Hg] 60 mm[Hg] Not Available [facility] 0 05:46:58 Date Recorded Body height Body weight Body mass index (BMI) Systolic blood pressure Diastolic blood pressure Provider Name and Address Organization Details Last Updated DateTime 05/23/2013 165.1 cm 21277.28 926 g 32.95 kg/m2 110 mm[Hg] 68 mm[Hg] Not Available [facility] 0 05:46:58 Date Recorded Body height Body mass index (BMI) Body weight Systolic blood pressure Diastolic blood pressure Provider Name and Address Organization Details Last Updated DateTime 06/14/2013 165.1 cm 31.75 kg/m2 33141.42 4196 g 116 mm[Hg] 80 mm[Hg] Not Available [facility] 0 05:46:58 Date Recorded Body weight Body mass index (BMI) Body height Systolic blood pressure Diastolic blood pressure Provider Name and Address Organization Details Last Updated DateTime 07/17/2018 08991.18 9652 g 29.89 kg/m2 165.1 cm 124 mm[Hg] 84 mm[Hg] Not Available [facility] 0 05:46:57 Date Recorded Body height Body weight Body mass index (BMI) Systolic blood pressure Diastolic blood pressure Provider Name and Address Organization Details Last Updated DateTime 08/06/2019 165.1 cm 57486.59 446 g 26.29 kg/m2 128 mm[Hg] 80 mm[Hg] Not Available [facility] 0 05:46:59 Date Recorded Body weight Systolic blood pressure Diastolic blood pressure Provider Name and Address Organization Details Last Updated DateTime 04/26/2013 19305.3302 32 g 120 mm[Hg] 78 mm[Hg] Not Available [facility] 01/18/2020 05:46:59 Date Recorded Body mass index (BMI) Body weight Body height Systolic blood pressure Diastolic blood pressure Provider Name and Address Organization Details Last Updated DateTime 05/18/2013 33.01 kg/m2 25581.72 6208 g 165.1 cm 108 mm[Hg] 86 mm[Hg] Not Available [facility] 0 05:46:58 Date Recorded Body mass index (BMI) Body height Body weight Systolic blood pressure Diastolic blood pressure Provider Name and Address Organization Details Last Updated DateTime 12/25/2015 31.82 kg/m2 165.1 cm 96667.86 1144 g 110 mm[Hg] 72 mm[Hg] Not Available [facility] 0 05:46:59 Date Recorded Body weight Systolic blood pressure Diastolic blood pressure Provider Name and Address Organization Details Last Updated DateTime 01/11/2013 79683.3772 14 g 118 mm[Hg] 64 mm[Hg] Not Available [facility] 01/18/2020 05:46:57 Date Recorded Body weight Systolic blood pressure Diastolic blood pressure Provider Name and Address Organization Details Last Updated DateTime 01/25/2013 38570.8727 98 g 126 mm[Hg] 78 mm[Hg] Not Available [facility] 01/18/2020 05:46:58 Date Recorded Body mass index (BMI) Body weight Body height Systolic blood pressure Diastolic blood pressure Provider Name and Address Organization Details Last Updated DateTime 09/14/2012 24.49 kg/m2 92545.79 6864 g 165.1 cm 110 mm[Hg] 70 mm[Hg] Not Available [facility] 0 05:47:00 Date Recorded Body weight Systolic blood pressure Diastolic blood pressure Provider Name and Address Organization Details Last Updated DateTime 05/01/2013 42569.1454 92 g 142 mm[Hg] 90 mm[Hg] Not Available [facility] 01/18/2020 05:46:58 Date Recorded Body mass index (BMI) Body height Body weight Systolic blood pressure Diastolic blood pressure Provider Name and Address Organization Details Last Updated DateTime 05/31/2018 30.69 kg/m2 165.1 cm 21608.43 3028 g 120 mm[Hg] 62 mm[Hg] Not Available [facility] 0 05:46:59 Date Recorded Body height Body weight Body mass index (BMI) Systolic blood pressure Diastolic blood pressure Provider Name and Address Organization Details Last Updated DateTime 10/02/2012 165.1 cm 27585.07 5202 g 32.38 kg/m2 96 mm[Hg] 62 mm[Hg] Not Available [facility] 0 05:46:58 Date Recorded Body height Body weight Body mass index (BMI) Systolic blood pressure Diastolic blood pressure Provider Name and Address Organization Details Last Updated DateTime 06/08/2016 165.1 cm 19071.32 741 g 32.12 kg/m2 120 mm[Hg] 70 mm[Hg] Not Available [facility] 0 05:46:58 Date Recorded Body weight Systolic blood pressure Diastolic blood pressure Provider Name and Address Organization Details Last Updated DateTime 03/29/2013 10249.9226 02 g 112 mm[Hg] 82 mm[Hg] Not Available [facility] 01/18/2020 05:46:58 Date Recorded Body height Body mass index (BMI) Body weight Systolic blood pressure Diastolic blood pressure Provider Name and Address Organization Details Last Updated DateTime 06/18/2020 165.1 cm 28.1 kg/m2 69777.39 g 136 mm[Hg] 84 mm[Hg] JEREMIAS Gonzalez NURSE INFORMATICS EDUCATOR 1 10:12:53 Date Recorded Body height Body mass index (BMI) Body weight Systolic blood pressure Diastolic blood pressure Provider Name and Address Organization Details Last Updated DateTime 07/11/2020 165.1 cm 28.1 kg/m2 98916.39 g 130 mm[Hg] 88 mm[Hg] JEREMIAS Leónibrahima NURSE INFORMATICS EDUCATOR 12:27:10 Date Recorded Body height Body mass index (BMI) Body weight Systolic blood pressure Diastolic blood pressure Provider Name and Address Organization Details Last Updated DateTime 08/13/2020 165.1 cm 28.1 kg/m2 15734.39 g 122 mm[Hg] 84 mm[Hg] JEREMIAS León NURSE INFORMATICS EDUCATOR 14:30:10 Date Recorded Body height Body mass index (BMI) Body weight Systolic blood pressure Diastolic blood pressure Provider Name and Address Organization Details Last Updated DateTime 08/18/2020 165.1 cm 28 kg/m2 80294.52 g 120 mm[Hg] 84 mm[Hg] JEREMIAS León Quintonibrahima NURSE INFORMATICS EDUCATOR 12:46:40 Social History Question Answer Notes LastModified by Organizat ion Details LastModified Time Tobacco Smoking Status Never Smoker never Not Available [facility] 01/18/2020 01:57:10 What Is Your Level Of Alcohol Consumption? Occasional 1x Wk Information not available 09/12/2023 How Many Times Per Week Do You Consume Alcohol? 1-2 Times Per Week Information not available 09/12/2023 What Is Your Level Of Caffeine Consumption? Moderate 1 Cup Daily [email or web address] Information not available 03/24/2023 Are You Currently Employed? Yes [email or web address] Information not available 03/24/2023 What Type Of Diet Are You Following? 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 No [email or web address] Information not available 03/24/2023 What Is Your Relationship Status? [email or web address] Information not available 04/15/2021 Are You Sexually Active? Yes [email or web address] Information not available 07/11/2020 Are You Passively Exposed To Smoke? No [email or web address] Information not available 03/24/2023 Do You Use Any Illicit Or Recreational Drugs? No Information not available 09/12/2023 Do You Or Have You Ever Used Any Other Forms Of Tobacco Or Nicotine? No Information not available 09/12/2023 Sex: Female Functional Status Question Answer Note LastModified by Organizat ion Details LastModified Time What is your exercise level? Occasional 2x wk API-27 Information not available 03/24/2023 Mental Status None recorded. Family History Relationship Description Onset Age of this Age Resolved Age Notes Paternal Grandfather Family history of cancer of colon Father Hodgkin's disease (clinical) Paternal Grandmother Hodgkin's disease (clinical) Notes:Mother- child of KIANA ( Laura's Grandmother had KIANA) Medical History Condition Response Neurology-Other Y ID- Usual childhood diseases- Chicken Po x Y Gynecological History Statement/Question Response Sexually Active Y History of Abnormal PAP Y HPV Test Positive Age at Menarche: 10 Date of LMP 05/27/2021 History of Sexually Transmitted Infectio n Y N HPV Vaccine Not Applicable Current Control Method Hysterectom y Date of Last Pap Smear 06/18/2020 13 Obstetrics History GPAL:G 1 P 1 0 0 1 Type Value Full Term 1 Living 1 Total 1 Immunizations Vaccine Type Date Status Provider Name and Address Organization Details Recorded Time COVID-19, mRNA, LNP-S, PF, 30 mcg/0.3 mL dose 05/05/2021 completed Hope Shittu null, [place] [facility]UR[facility] EDUC[facility] 07/07/2023 12:03:23 Tdap 01/04/2017 completed [place] Shitt[place] [facility] 07/07/2023 12:03:23 Influenza, seasonal, injectable 04/09/2005 completed [place] Sh[place] [facility] 07/07/2023 12:03:23 Hep B, adult 08/01/2001 completed Hope Shittu [place] [facility] EDUC[facility] 07/07/2023 12:03:23 Hep B, adult 09/01/2001 completed [place] Shittu [place] [facility] 07/07/2023 12:03:23 Hep B, adult 01/05/2007 completed [place] Shittu [place] [facility] EDUC[facility] 07/07/2023 12:03:23 influenza, injectable, quadrivalent, preservative free 03/09/2018 completed Josefina Funku [place] [facility] EDUC[facility] 07/07/2023 12:03:23 Tdap 02/15/2013 completed Josefina Funku [place] [facility] EDUC[facility] 07/07/2023 12:03:23 Past Encounters Encounter ID Performer Location Encounter Start Date Encounter Closed Date Diagnosis/Indication Diagnosis SNOMED-CT Code [id number] PEG BAÑUELOS PA-C [id number] [address] [place] [address] 06/18/2020 10:02:36 06/18/2020 12:51:07 Gynecologic examination 08245169 Hirsutism 921571334 Surveillan ce of intrauterine device contraception done [id number] CHANCE KHAN MD [id number] [address] [place] [address] 07/11/2020 12:24:03 07/11/2020 13:02:17 Low grade squamous intraepithelial lesion on cervical Papanicolaou smear [id number] CHANCE KHAN MD [id number] [address] [place] [address] 08/13/2020 14:16:14 08/13/2020 15:05:46 Cervical intraepithelial neoplasia grade III with severe dysplasia [id number] CHANCE KHAN MD [id number] [facility] [id number] [facility],[address] [place] [address] 08/18/2020 12:34:45 08/18/2020 13:16:49 Dysuria 77615309 Increased frequency of urination 461388337 Postoperative visit 9679 82018 Acute vaginitis 45131694 [id number] CHANCE KHAN MD [id number] [address] [place] [address] 04/15/2021 11:33:32 04/15/2021 12:54:52 Removal of intrauterine device 92592500 Contracept ion education 202015382 Cervical intraepithelial neoplasia grade 2 791523629 Loss of hair 556893419 [id number] MD [address] [place] [address],[address] [place] [address] 05/22/2021 13:46:43 05/22/2021 15:16:12 Cervical intraepithelial neoplasia grade [address]127425 [id number] MD [address] [place] [address] 06/17/2021 15:13:39 06/17/2021 18:00:52 Pre-surgery evaluation 638130825 Candidiasis of skin 4988 3006 Cervical intraepithelial neoplasia grade [id number] [place] [address] 07/08/2021 11:30:45 07/08/2021 12:58:00 Postoperative visit [id number] [id number] ELVIA ANDREA [address] [place] [address],[address] [address] 07/31/2021 14:44:45 07/31/2021 16:32:18 Postoperative visit 730598725 [id number] MD [facility] [address] [place] [address],[address] [address] 08/21/2021 10:12:58 08/21/2021 11:10:44 Postoperative visit 352011784 History of dysplasia of cervix 291971674 [id number] ELVIA ANDREA [address] [place] [address],[address] [place] [address] 03/24/2023 14:09:07 03/24/2023 15:26:45 Venereal disease screening 247536300 Pain in pelvis 69789757 [id number] BOONE SNYDER MD [id number] [place] [address] [facility] [place] [address] 03/24/2023 14:51:28 03/24/2023 15:09:46 Pain in pelvis 37641227 [id number] PEG BAÑUELOS PA-C [id number] [address] [address] [facility],[address] [place] [address] 07/07/2023 11:52:28 07/07/2023 12:41:33 Weight gain 0693281 Acute vaginitis 84883366 [id number] PEG BAÑUELOS PA-C [id number] [facility] [id number] [facility],[address] [place] [address] 09/12/2023 15:14:32 09/12/2023 15:52:54 Acute vaginitis 72811251 Body mass index 25-29 - overweight 780637507 Health Concerns Section Related Observation LastModified by Organization Detai ls LastModified Time None Recorded Concern Status LastModified by Organization Details LastModified Time None Recorded Advance Directives Directive None Recorded Payers Encounter Date Sequence Insurance Name Policy Number Policy Patel Covered Member ID Patel Member ID Guarantor Name 09/12/2023 1 [facility] - OPEN ACCESS CHOICE (HMO) [id number] Laura Valentin [id number] Laura Delgadoam 07/07/2023 1 [employer] - DOS PRIOR TO 2023 (MEDICAID REPLACEMENT - HMO) [id number] Laura Karol Homero [id number] Laura E Homero 03/24/2023 1 [employer] - DOS PRIOR TO 2023 (MEDICAID REPLACEMENT - HMO) [id number] Laura E Homero [id number] Laura E Homero 03/24/2023 1 [employer] - DOS PRIOR TO 2023 (MEDICAID REPLACEMENT - HMO) [id number] Laura E Homero [id number] Laura E Homero 08/21/2021 1 [employer] - DOS PRIOR TO 2023 (MEDICAID REPLACEMENT - HMO) [id number] Laura Karol Homero [id number] Laura E Homero 07/31/2021 1 [employer] - DOS PRIOR TO 2023 (MEDICAID REPLACEMENT - HMO) [id number] Laura E Homero [id number] Laura E Homero 07/08/2021 1 [employer] - DOS PRIOR TO 2023 (MEDICAID REPLACEMENT - HMO) [id number] Laura E Homero [id number] Laura E Homero 06/17/2021 1 [employer] - DOS PRIOR TO 2021 (MEDICAID REPLACEMENT - HMO) [place] Laura E E Homero [id number] Laura E Homero 05/22/2021 1 [employer] - DOS PRIOR TO 2021 (MEDICAID REPLACEMENT - HMO) [place] Laura E E Homero [id number] Laura E Homero 04/15/2021 1 [employer] - DOS PRIOR TO 2021 (MEDICAID REPLACEMENT - HMO) [place] Laura E E Homero [id number] Laura E Homero 08/18/2020 1 [employer] - DOS PRIOR TO 2021 [place] Laura E Homero [id number] Laura E Homero 08/13/2020 1 [employer] - DOS PRIOR TO 2021 [place] Laura E Homero [id number] Laura E Homero 07/11/2020 1 [employer] - DOS PRIOR TO 2021 [place] Laura E Homero [id number] Laura E Homero 06/18/2020 1 [employer] - DOS PRIOR TO 2021 [place] Laura E Homero [id number] Laura E Homero Notes Date Note Type Note Provider Name and Address Organization Details Recorded Time 06/18/2020 text/html HPI Notes: Annua l Premenopausal ([facility]) Reported by patient. Patient Relationship To Practice: established patient Current Medical History: no active medical problems; no recent surgeries or hospitalizations Relevant Family History: no family history of breast cancer; no family history of ovarian cancer; no family history of uterine cancer; no family history of colon cancer; no family history of blood clots/DVT Contraceptive Method: Current Method Used: levonorgestrel containing IUD--5 year; satisfied; bloated, mood, pms sx constant with IUD- Absent cycle Sexually Active: Yes: same partner STI Screen: declines Health/Prevention: Exercise: yes; Multivitamins: ; Vitamin D: yes; Adequate Calcium Intake: yes; Breast Self Exam: ; Tobacco Use: no; Safe at home: yes; Mental Health Screen: normal Pap Smear +/- HPV Cotesting: up-to-date Patient has: other (psych.) Notes: Has been struggling with her mood more. Feels she is more on edge. Discussed phq/cj scores. Takes lamictal. sees psych but is hard to get into. Curious about increasing her dose. recommend she f/u with her psych since I am not familiar with lamictal dosing. Pt agrees. Has had more weight gain, bloating. just feels off. some lower pelvic cramping. STates she just feel like on her period all of the time but not bleeding with her Mirena. sx's are mild but noticeable. has not been exercising. eating more cheese. PEG BAÑUELOS PA-C [address],[facility] [address], [place], [address], [facility] NURSE INFORMATICS EDUCATOR 06/18/2020 12:04:46 07/11/2020 text/html HPI Notes: Abnor mal Pap ([facility]) Reported by patient. Patient Relationship To Practice: established patient *Date of Last Pap (Timing): Date: 06/18/20 *Pap Result (Severity): LGSIL High Risk HPV Test (Context): Date:06/18/20 Result: positive; HPV 16/18 Result: positive * Context: History of Abnormal Paps: no; History of Cervical Dysplasia: NONE; History [place]: [place] [id number],[facility] [address], [place], [address], [facility] NURSE INFORMATICS EDUCATOR 07/12/2020 16:43:42 08/13/2020 text/html HPI Notes: Abnor mal Pap ([facility]) Reported by patient. Patient Relationship To Practice: established patient * Context: History of Cervical Dysplasia: JENNIFER 3; Recent colposcopy done. Cervical biopsy with JENNIFER 3[place] [address], [place], [address], [facility] NURSE INFORMATICS EDUCATOR 08/13/2020 15:13:11 08/18/2020 text/html HPI Notes: F/u f rom LEEP on Sunday 08/13. On 08/17 passed tissue about 4-5 inches long (denies any blood clot) developed cramping and an unusual odor. When laying on back instantly feels she needs to urinate. Noted more severe cramping yesterday - this is better today. [place] [id number], [place], [address], [facility] NURSE INFORMATICS EDUCATOR 08/19/2020 10:30:37 04/15/2021 text/html HPI Notes: Feels she has been experiencing hair loss since IUD was first placed 8 years ago. Has done blood work up that has all come back negative. She has seen dermatology who recommended consideration of rogaine. She does not feel like things have improved or worsened during this time. She does not need control and she would like to have IUD removed. She is not currently sexually active. Declines flu shot today. 08/13/20 - JENNIFER 2 with + endocervical margin. ECC negative. Today is her first follow up. 7 year old with ADHD [place] [id number], [place], [address], [facility] NURSE INFORMATICS EDUCATOR 04/16/2021 20:39:12 05/22/2021 text/html HPI Notes: Abnor mal Pap ([facility]) Reported by patient. Patient Relationship To Practice: established patient *Date of Last Pap (Timing): Date: 06-18-2020 *Pap Result (Severity): LGSIL High Risk HPV Test (Context): Date:06-18-2020 Result: positive; HPV 16/18 Result: positive; other high risk positive * Context: History of Cervical Dysplasia: JENNIFER 2; History of LEEP: yes; LEEP procedure 08-13-2020 endocervical margin is positive, ECC Is negative Notes: Recent follow up ECC is positive [place] [id number], [place], [address], [facility] - [facility] NURSE INFORMATICS EDUCATOR 05/22/2021 18:17:35 06/17/2021 text/html HPI Notes: Pre-O p ([facility]) Reported by patient. Procedure: DV TH, BS, CYSTO Procedure Date: 06-25-21 Surgeon: JORDON, assist: RANI Procedure Location: [facility] Reason for Procedure: Cervical intraepithelial neoplasia grade 2 Past Medical History significant for: asthma: no; CAD: no; renal insufficiency: no; diabetes: no; congestive heart failure: no; recent MD: no; valvular heart disease: no; sleep apnea: no Bleeding Risk: History of: bleeding or easy bruising: no; bleeding into joints or muscles: no; frequent nosebleeds: no; heavy menstrual bleeding: no History of bleeding after: loss of teeth or dental extractions: no; previous surgery: no; previous injury: no Is the patient currently taking: antihistamines: no; aspirin or ibuprofen products: no; blood thinners: no; Metformin: no; seizure medication: no Anesthetic risk: difficulty waking up from anesthesia: no; excessive post op nausea and vomiting: no; sensitivity to narcotics: yes; sensitivity to anesthesia: no Family History of: blood transfusion: no; a blood or bleeding disorder: no; malignant hyperthermia: no; adverse reactions to anesthesia: no Notes: 7 year old at home. COVID testing is negative. Noting nasal congestion currently. No fever or cough. Will monitor and reach out if COVID test turns positive or worsening symptoms noted. Noting rash on [place] chest 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 Procedure Date: 06/25/21 Surgical Procedure: total hysterectomy: robotic; salpingoophorectomy: bilateral, robotic; cystoscopy Pathology: surgical findings and pathology reviewed; future implications discussed; Reviewed need for PAP smears secondary to hysterectomy done for cervical dysplasia. Postoperative Symptoms: none; pain well-controlled; tolerating PO; ambulating; voiding without difficulty; return to GI function Postoperative Complications: none Notes: 1st COVID vaccine dose - sick for 1 week. She had her first dose on May 13. She continues to feel like she has had more headaches sincer her vaccination. Her work is requiring her to complete 2nd dose. She is wondering about exemption. She has seen [facility] in the past. In emergency she would be required to see clients. 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 Procedure Date: 06/25/21 Surgical Procedure: total hysterectomy: robotic; salpingoophorectomy: bilateral, robotic; cystoscopy Pathology: surgical findings and pathology reviewed; future implications discussed; Reviewed need for PAP smears secondary to hysterectomy done for cervical dysplasia. Postoperative Symptoms: none; pain well-controlled; tolerating PO; ambulating; voiding without difficulty; return to GI function; incision(s) open Postoperative Complications: none Notes: Pt is here for concerns with stitches and feeling like she can feel them coming out. questions about weight and exercise restrictions- discussed in detail. 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 Procedure Date: 06/25/21 Surgical Procedure: total hysterectomy: robotic; salpingoophorectomy: bilateral, robotic; cystoscopy Pathology: surgical findings and pathology reviewed; future implications discussed; Reviewed need for PAP smears secondary to hysterectomy done for cervical dysplasia. Postoperative Symptoms: none; pain well-controlled; tolerating PO; ambulating; voiding without difficulty; return to GI function Postoperative Complications: none Notes: Feeling back to normal. Pt states she is still getting cyclic period-like sx such as bloating. Reviewed that she is ovulating after hysterectomy and this will continue to be [place] [address], [place], [address], [place] - [facility] NURSE INFORMATICS EDUCATOR 08/21/2021 10:39:07 03/24/2023 text/html HPI Notes: Abdom inal/ Pelvic Pain ([facility]) Reported by patient. Patient Relationship To Practice: established patient Patient Presents for: new problem * Location: upper; flank * Quality: fullness/bloating * Severity: moderate * Duration: 2 months * Timing: first episode * Modifying Factors: worse with movement/exercise * Associated Signs & Symptoms: back pain; groin/leg pain Prior Treatments: mlau-aun-ouvlcra pain medications Here today for on going pelvic pain. Pt.had hysterectomy back in . Denies no vaginal bleeding. Does notice the bloating for about a week and then feels fine for 3 weeks. The pain does wrap around the back and down the legs when the pain is happening. Pain present x 2 months. fairly constant. crossfit 3/week. flares up with her exercise more bloating. bm's- taking probiotic. regular bm's no urinary sx's. no vaginal sx's. no pain w/ ic. new partner a few months ago- agrees to std testing. PEG BAÑUELOS PA-C [address], [place], [address], [facility] NURSE INFORMATICS EDUCATOR 03/24/2023 15:40:05 07/07/2023 text/html HPI Notes: Vagin al/ Vulvar Problem ([facility]) Reported by patient. * Location: vaginal * Quality: discharge; irritation; yellow/clear/milky color at times * Duration: 4 days * Associated Signs & Symptoms: aching Notes: large amt of thin, watery d/c. no odor. some discomfort in her pelvis. new partner. Also c/o weight gain issues since her hysterectomy 2 years ago. no matter what she does, she is gaining weight. is doing cardio/weight training 3-5 times per week. Has built muscle. 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 Recently switched to a new one who is doing body scans and working on macro's. she eats clean. avoiding sugar, increasing protein. has done calorie restriction. is up almost 25 lbs since last year. PEG BAÑUELOS PA-C [address], [place], [address], [facility] - [facility] NURSE INFORMATICS EDUCATOR 07/07/2023 15:17:30 09/12/2023 text/html HPI Notes: Vagin al/ Vulvar Problem ([facility]) Reported by patient. Referred By: self * Location: vaginal * Quality: discharge; irritation; yellow/clear/milky color at times * Severity: moderate * Timing: intermittent; constant * Context: new sexual partner; previous vaginitis; previous treatments * Associated Signs & Symptoms: no fever/chills; no weight loss; no oral lesions; no nausea; no vomiting; no constipation; no diarrhea; no painful bowel movements; no fecal incontinence; pelvic pain; aching; no cramps; no tearing pain; no stabbing pain; no urinary symptoms; no urinary incontinence; no vulvar lesion; no anal lesions; no odor; no itching; no burning; no abnormal bleeding; no painful intercourse 09/12/23: Pt present for possible BV. She has been trying monistat and that has not been working, so she does not believe it is yeast. Had a positive result for BV on 07/07/23. Prescribed Flagyl 500 mg at that time. She believes that these recurrent BV symptoms are due to intercourse. Does take probiotics to help. jk/rn Pos BV in Mar and Jun. Treated with metrogel in Jun and then needed oral flagyl to clear it. New partner in Jun. Having d/c, irritation. Sx's classic for BV for her. PEG BAÑUELOS PA-C [id number] [facility],[address], [place], [address], [facility] - [facility] NURSE INFORMATICS EDUCATOR 09/12/2023 16:46:28 OBGyn Episode No OBEpisode recorded.
--- OUTSIDE RECORDS SUMMARY | 2023-10-12 21:05 | XMS_ITS | Continuity of Care Document ---
Author Name Unknown Address [address] [place] [address] Phone [phone] Organization [facility] [employer], [id number] Address [address] [address] [facility] [address] [place] [address] Assessment No assessment recorded. Plan of Treatment Reminders Order Date Submit Date Provider Last Modified By Organization Details Last Modified Time Details Appointments None recorded. Lab bacterial vaginosis + vaginitis panel, vaginal 2023 [address], [address] [address], [address], [place], [address], 17:18:36 Referral None recorded. Procedures None recorded. Surgeries None recorded. Imaging None recorded. Medication Orders None recorded. Patient TargetsNo targets recorded. Patient InstructionsNo instructions recorded. Reason for Referral None Reported. Results Created Date Observation Date Name Description Value Unit Range Abnormal Flag LastModifiedBy Organization Detail LastModifiedTime 09/12/1909/12/2023 bacte rial vagin osis + vagin itis panel , vagin al bacterial vaginosis negati ve negati ve normal Not Available [address] [address] [address], [place], [address], 09/12/2023 15:34:32 09/12/19 24 09/12/2023 bacte rial vagin osis + vagin itis panel , vagin al saleem group negati ve negati ve normal Not Available [address] [address] [address], [place], [address], 09/12/2023 15:34:32 09/12/19 24 09/12/2023 bacte rial vagin osis + vagin itis panel , vagin al trichomonas negati ve negati ve normal Not Available [id number] [address], [place], [address], 09/12/2023 15:34:32 Result Notes None recorded. Problems Name Status Onset Date Resolution Date Notes Provider Name and Address Organization Details Recorded Time Uses IUD (intrauterine device) contraception Completed 201307/17/2018 PEG BAÑUELOS PA-C [address], [place], [address] , [facility] [employer] 1 11:07:12 Depressive disorder Active 2018 Not Available [facility] 0 14:43:16 Hirsutism Active 2020 spironolacton e helps PEG BAÑUELOS PA-C [address], [place], [address] , [facility] [employer] 1 11:10:37 Problem Notes None recorded. Procedures Surgical History Date Name Laterality Status Provider Name and Address Organization Details Recorded Time 06/25/19 22 ROBOTIC ASSISTED HYSTERECTOMY WITH SALPINGECTOMY (SURG) completed JEREMIAS Thornton [employer] 07/10/2021 08:44:17 06/25/19 22 ROBOTIC ASSISTED HYSTERECTOMY WITH SALPINGECTOMY (SURG) completed J[facility]EMIAS [facility] [employer] 07/22/2021 08:00:36 05/22/20 21 Colposcopy (vaginal & cervical) ([facility]) [place] [address], [place], [address], [facility] [employer] 05/22/2021 15:12:39 04/15/20 21 [facility] [place] [address] [facility],[address], [place], [address], [place] - [facility] [employer] 04/15/2021 12:30:54 04/15/20 21 IUD Removal Procedure Note ([facility]) [place] [id number] [facility],[address], [place], [address], [facility] - [employer] 04/15/2021 12:26:14 08/14/19 21 LEEP Procedure Note ([facility]) [place] [id number] [facility],[address], [place], [address], [facility] - [employer] 08/13/2020 15:05:45 08/14/19 21 LEEP completed Kelly alonso [facility] [employer] 08/13/2020 16:35:38 07/11/19 21 Colposcopy (vaginal & cervical) ([facility]) [place] [address] [facility],[address], [place], [address], [facility] [employer] 07/12/2020 16:42:49 06/18/19 21 Date of Last Pap Smear completed PEG BAÑUELOS PA-C [address] [facility],[address], [place], [address], [facility] [employer] 06/26/2020 11:30:21 01/16/20 14 tonsillectomy completed Not Available [facility] 2019 15:44:37 05/02/20 13 spontaneous unassisted delivery, medical personnel present completed Not Available [facility] 0 15:44:37 Oral surgery procedure completed Not Available [employer] 04/15/2021 11:33:33 colposcopy completed Enid alonso, [place] - [facility] [employer] 05/22/2021 14:01:39 Imaging Results None recorded. Procedure Notes None recorded. Medical Equipment None [...] Available vitamin B comp and C no.3 10/12 /2023 completed Not Available Not Available Not Available [...] Updated DateTime 09/12/2023 167.64 cm 28.8 kg/m2 75680.6 g 114 mm[Hg] 68 mm[Hg] JEREMIAS [facility] [employer] 15:22:01 Social History Question Answer Notes LastModified by Organizat ion Details LastModified Time Tobacco Smoking Status Never Smoker never Not Available [facility] 01/18/2020 01:57:10 What Is Your Level Of [...] 05/05/2021 completed Hope Shittu null, [place] [facility] [employer] 07/07/2023 12:03:23 Tdap 01/04/2017 completed Hope Shittu null, [place] [employer] 07/07/2023 12:03:23 Influenza, seasonal, injectable 04/09/2005 completed Hope Shittu null, [place] - [facility] [employer] 07/07/2023 12:03:23 Hep B, adult 08/01/2001 completed Hope Shittu null, [place] - [facility] [employer] 07/07/2023 12:03:23 Hep B, adult 09/01/2001 completed Hope Shittu null, [facility] [employer] 07/07/2023 12:03:23 Hep B, adult 01/05/2007 completed Hope Shittu null, [place] - [facility] [employer] 07/07/2023 12:03:23 influenza, injectable, quadrivalent, preservative free 03/09/2018 completed Hope Shittu null, [place] [facility] [employer] 07/07/2023 12:03:23 Tdap 02/15/2013 completed Josefina alonso, JEREMIAS - [employer] 07/07/2023 12:03:23 Past Encounters Encounter ID Performer Location Encounter Start Date Encounter Closed Date Diagnosis/Indication Diagnosis SNOMED-CT Code [id number] PEG BAÑUELOS PA-C [id number] [place] [address],[address] [place] [address] 09/12/2023 15:14:32 09/12/2023 15:52:54 Acute vaginitis 42601281 Body mass index 25-29 - overweight [id number] Health Concerns Section Related Observation LastModified by Organization Detai ls LastModified Time None Recorded Concern Status LastModified by Organization Details LastModified Time None Recorded Payers Encounter Date Sequence Insurance Name Policy Number Policy Patel Covered Member ID Patel Member ID Guarantor Name 09/12/2023 1 [employer] - OPEN ACCESS CHOICE (HMO) [id number] Laura Valentin [id number] Laura Valentin Notes Date Note Type Note Provider Name and Address Organization Details Recorded Time 09/12/2023 text/html HPI Notes: Vaginal/ Vulvar Problem ([facility]) Reported by patient. Referred [...] Sx's classic for BV for her. PEG BAÑUELOS, ALEKSANDRAC [address] [facility],[address], [place], [address], [place] - [facility] [employer] 09/12/2023 16:46:28 OBGyn Episode No OBEpisode recorded.
--- OUTSIDE RECORDS SUMMARY | 2023-10-12 21:05 | XMS_ITS | Clinical Summary ---
Author Name Unknown Organization [facility] Address [place], [place] [address] Care Team Providers Care Packager Or Packer And Weigher Name Role Phone Fer Walker Primary Care Provider Carrie e Allergies Active Allergy Reactions Criticality Noted Date Comments Bupropion Hcl Dizziness 10/13/2015 dizziness, general uneasiness Citalopram Hydrobromide Other - Describe In Comment Field 10/13/2015 sexual side effects Unlisted Allergen (Include Detail In Comments) Nausea Only 06/09/2010 nausea, discharge Venlafaxine Nausea Only 05/16/2017 dizziness Medications Medication Sig Dispensed Refills Start Date End Date Status Cholecalciferol, Vitamin D3, (VITAMIN D-3) 5,000 unit tab Take by mouth once daily. 0 05/09/2017 Active cetirizine (ZYRTEC) 10 mg tablet Take 1 Tablet (10 mg) by mouth once daily. 0 11/12/2020 Active vitamin B complex vit C no.3 (VITAMIN B COMP AND C NO.3 ORAL) vitamin B comp and C no.3 Active gel-matrix pad dress, silicone 2 X 5.5 padsIndications:Lipo ma of back Apply topically to affected area(s). 4 Each 5 10/27/2021 Active lamoTRIgine (LAMICTAL) 100 mg tabletIndications:Mo derate episode of recurrent major depressive disorder (HC) Take 3 Tablets (300 mg) by mouth once daily. 270 Tablet 3 03/24/2022 Active traZODone (DESYREL) 50 mg tabletIndications:Sl eeping difficulty Take 1 Tablet (50 mg) by mouth at bedtime. 30 Tablet 1 03/24/2022 Active albuterol HFA (PRO-AIR; VENTOLIN; PROVENTIL) 90 mcg/actuation inhalerIndications:U pper respiratory tract infection, unspecified type Inhale 1-2 Puffs by mouth every 4 hours if needed for Shortness Of Breath or Wheezing. 1 Each 1 05/10/2022 Active spironolactone (ALDACTONE) 50 mg tabletIndications:Ac ne vulgaris TAKE 1 TABLET BY MOUTH EVERY DAY 30 Tablet 08/24/2023 Active Bimatoprost 0.03 % drpaIndications:Tric hotillomania APPLY 1 DROP BY BASE OF THE EYELASHES ONCE DAILY. 3 mL 08/24/2023 Active Active Problems Problem Noted Date Diagnosed Date PTSD (post-traumatic stress disorder) 01/26/2018 PTSD (post-traumatic stress disorder) 01/26/2018 Presence of intrauterine contraceptive device Viral syndrome 05/31/2017 Nausea & vomiting 05/31/2017 Hypokalemia 05/31/2017 Leukopenia 05/31/2017 Headache 05/31/2017 Thrombocytopenia 05/31/2017 Moderate episode of recurrent major depressive d isorder 05/09/2017 Lipoma of back 05/09/2017 Migraine syndrome 07/12/2016 Aseptic meningitis 07/12/2016 PCOS (polycystic ovarian syndrome) 10/13/2015 Body mass index 31.0-31.9, adult 10/13/2015 Generalized anxiety disorder 01/14/2014 Overview: Overview: Diagnosis updated by automated process. Provider to review and confirm. Vitamin D deficiency 12/09/2010 Overview: Overview: Problem list name updated by automated process. Provider to review Pathological fracture of vertebra 12/06/2006 Lipoma of torso Encounters Date Type Department Care Team Description 09/19/2023 Telephone [facility] [address] [place] [address] Brooklynn Rockwell MD Refill Request (Spironolactone 50mg tablet ) 08/20/2023 Refill [facility] [address] [place] [address] Brooklynn Rockwell MD Refill Request (Spironolactone, Bimatoprost) from Last 3 Months Immunizations Name Administration Dates Next Due Hepatitis B (Adult) 01/05/2007,09/01/2001,2001 Hepatitis B (Peds) 01/05/2007,09/01/2001, 002 Hepatitis B, Unspecified 01/05/2007,09/01/2001,0 08/01/2001 Influenza Virus, Unspecified 03/09/2018,05/10/20 16,05/01/2013 Influenza, IIV3 (Age >=3 years) 04/09/2005 Influenza, IIV4 03/09/2018,03/13/2016 MMR 11/23/1994,06/30/1985 Tdap 01/04/2017,02/15/2013,10/20/2005 Family History Medical History Relation Name Comments Lymphoma Father Cancer-pancreatic Maternal Grandfather Good Health Mother Lymphoma Paternal Grandfather Lymphoma Paternal Uncle Relation Name Status Comments Father Maternal Grandfather Mother Paternal Grandfather Paternal Uncle Social History Tobacco Use Types Packs/Day Years Used Date Smoking Tobacco: Never Smokeless Tobacco: Never Tobacco Cessation:Counseling Given: Yes Alcohol Use Standard Drinks/Week Comments Yes 0 (1 standard drink = 0.6 oz pure alcohol) glass of wine every once in awhile PHQ-2 Answer Date Recorded PHQ-2 TOTAL SCORE 0 03/24/2022 Social Connections Answer Date Recorded Frequency of Communication with Friends and Fami ly Not on file 10/26/2022 Financial Resource Strain Answer Date R ecorded Difficulty of Paying Living Expenses 3 10/16/2021 Difficulty of Paying Living Expenses Not on file 10/16/2021 Food Insecurity Answer Date Recorded Worried About Running Out of Food in the Last Ye ar 1 10/16/2021 Transportation Needs Answer Date Record ed Lack of Transportation (Medical) 1 10/16/2021 Housing Stability Answer Date Recorded Unable to Pay for Housing in the Last Year 1 10/16/2021 Sex and Gender Information Value Date Recorded Sex Assigned at Not on file Gender Identity Not on file Sexual Orientation Not on file Obstetrics History Para Term AB IAB SAB Ectopic Multiple Livin g Live Births 1 Date Outcome GA Total Labor Labor/2nd/3rd Weight Sex Delivery Anes PTL Le A1 A5 Name Cl in Term Vag Nimo ng Last Filed Vital Signs Vital Sign Reading Time Taken Comments Blood Pressure 112/75 05/10/2022 3:46 PM PACKING MACHINE FEEDER Pulse 62 05/10/2022 3:46 PM PACKING MACHINE FEEDER Temperature 36.9 ??C (98.5 ??F) 03/24/2022 11:30 AM C DT Respiratory Rate 18 07/04/2021 1:37 PM PACKING MACHINE FEEDER Oxygen Saturation 98% 05/10/2022 3:46 PM PACKING MACHINE FEEDER Inhaled Oxygen Concentration - - Weight 74.7 kg (164 lb 9.6 oz) 05/10/2022 3:46 P M PACKING MACHINE [employer]EDER Height 167.6 cm (5' 6) 03/24/2022 11:30 AM CDT Body Mass Index 26.57 03/24/2022 11:30 AM CDT Plan of Treatment Health Maintenance Due Date Last Done Comments Hepatitis C screening for age 18-79 01/08/2002 COVID-19 vaccine series () 02/11/2023 05/05/2021 BMI (ht and wt on same day) for age 18+ 03/24/2023 03/24/2022, 10/16/2021, 11/12/2020, Additional history exists Depression screening for age 12+ 03/24/2023 03/24/2022, 12/01/2021, 10/16/2021, Additional history exists Pap test for age 21-65 07/11/2023 (Verified in Care Everywhere or Patient Record), 12/12/2015 (Completed outside of [facility]), 08/02/2012 (Completed outside of [facility]) Tetanus booster 01/04/2027 01/04/2017, 0 10/2012, 10/20/2005 Tdap Completed 01/04/2017, 0 10/2012, 10/20/2005 HIV for age 15-65 Completed 05/31/2017 Pneumococcal series for age 6-64 Aged Out No longer eligible based on patient's age to complete this topic Procedures Procedure Name Priority Date/Time Associated Diagnosis Comments ANTI HIV 1/2 TABATHA 05/31/2017 8:01 PM PACKING MACHINE FEEDER from Last 3 Months or Most Recently Relevant to Health Maintenance Results * ANTI HIV 1/2 (05/31/2017 8:01 PM PACKING MACHINE FEEDER) HIV-1/HIV-2 ANTIBODY Non-Reacti ve Non-Reacti ve 06/01/2017 12:45 PM PACKING MACHINE FEEDER [facility] Blood BLOOD SPECIMEN / Unknown Line/Port / Unknown 05/31/2017 8:01 PM PACKING MACHINE FEEDER 05/31/2017 8:05 PM PACKING MACHINE FEEDER Narrative [facility] - 06/01/2017 12:45 PM PACKING MACHINE FEEDER HIV-1 p24 and HIV-1/HIV-2 Ab not detected Preston Rojas MD SEND OUTS [facility] [address] [place] [address], [place] from Last 3 Months or Most Recently Relevant to Health Maintenance Advance Directives * Full Code (Latest Code Status on File) Date Activated Date Inactivated Comments 01/31/2018 7:18 AM 01/31/2018 12:25 PM * Full Code Date Activated Date Inactivated Comments 05/31/2017 10:12 PM 06/01/2017 3:49 PM Question Answer Comments Code Status Discussion: Discussed * Full Code Date Activated Date Inactivated Comments 07/12/2016 8:27 PM 07/15/2016 4:14 PM Question Answer Comments Code Status Discussion: Discussed Care Teams Packager Or Packer And Weigher Relationship Specialty Start Date End Date Fer Walker PCP - General Obstetrics and Gynecology 07/04/21
[2023-10-12 21:19] LABS: PCR FLU A Negative PCR FLU A (Negative); PCR FLU B POSITIVE PCR FLU B (Negative); PCR RSV Negative PCR RSV (Negative); SARS PCR* Negative SARS-CoV-2 (Negative)
--- NOTE | 2023-10-12 21:40 | ED.GENADULT ---
HPI - General Adult General Date Seen: 10/12/23 Chief complaint: Cough Stated complaint: temp/chills for a weak,cough, body aches Time Seen by Provider: 10/12/23 20:08 Source: patient Mode of arrival: ambulatory Limitations: no limitations History of Present Illness HPI narrative: Patient is a 38-year-old female presenting to the emergency department for flu-like symptoms. She states she has been having headache, eye pain, cough and severe chills. Has been having fevers at home and taking Tylenol and Motrin without much improvement in her symptoms. States symptoms 1st started 1 week ago bed been worse over the past 2 days. Is not feeling short of breath. Denies chest pain. Denies abdominal pain, diarrhea, constipation, nausea/vomiting, weakness, numbness. States she has been eating and drinking without issue. No other concerns noted at this time. Not aware of any sick contacts. Related Data Home Medications Medication Instructions Recorded Confirmed spironolactone 50 mg tablet 50 mg PO DAILY 10/12/23 10/12/23 Allergies Allergy/AdvReac Type Severity Reaction Status Date / Time No Known Drug Allergies Allergy Verified 10/12/23 20:30 Review of Systems Status of ROS: Reports: 10 or more systems reviewed and unremarkable except as noted in History and below [facility] Social History Smoking Status: Never smoker Second hand tobacco smoke exposure: No How often do you have a drink containing alcohol: never AUDIT-C Alcohol total score: 0 Non-prescribed substance use: denies use Exam Narrative: Exam Narrative: Const: Well-nourished, Well-developed, in mild distress Eyes: PERRL, no conjunctival injection, and symmetrical lids HENT: Atraumatic external nose and ears. Moist mucous membranes. Neck: Symmetric, trachea midline, No thyromegaly. CVS: RRR, No murmurs or gallops. Peripheral pulses 2+ and equal in all extremities RESP: Unlabored respiratory effort. Clear to auscultation bilaterally. GI: Nontender/Nondistended, No rebound or guarding. MSK:Extremities w/o deformity, Normal Active ROM Skin: Warm, Dry. No rashes or lesions. Neuro: Normal Muscle tone, No focal neurological deficits. Psych: Awake, Alert, & Oriented x3. Appropriate mood and affect. Const: Vital Signs, click to edit/add: Vital Signs - 24 hr 10/12/23 20:30 Temperature 100.2 F H Pulse Rate [Pulse Oximeter] 74 Respiratory Rate 12 Blood Pressure [Ri ght Upper Arm] 134/83 Pulse Oximetry 95 Oxygen Delivery Me thod Room Air Course Vital Signs Vital signs: Initial Vital Signs Respiratory Effort Normal, Spontaneous, Non-Labored 10/12/23 20:29 Respiratory Depth Normal 10/12/23 20:29 Respiratory Pattern Normal 10/12/23 20:29 Vital Signs Temperature 100.2 F H 10/12/23 20:30 Pulse Rate 74 10/12/23 20:30 Respiratory Rate 12 10/12/23 20:30 Blood Pressure 134/83 10/12/23 20:30 Pulse Oximetry 95 10/12/23 20:30 Oxygen Delivery Method Room Air 10/12/23 20:30 Temperature 100.2 F H 10/12/23 20:30 Pulse Rate 74 10/12/23 20:30 Respiratory Rate 12 10/12/23 20:30 Blood Pressure 134/83 10/12/23 20:30 Pulse Oximetry 95 10/12/23 20:30 Oxygen Delivery Method Room Air 10/12/23 20:30 Medical Decision Making MDM Narrative Medical decision making narrative: Patient is a 38-year-old female presenting for flu-like symptoms. She does have a temperature 100.2? but has been taking Tylenol Motrin at home. We will do a COVID/flu/RSV swab into chest x-ray to look for signs of pneumonia. Chest x-ray reviewed by myself and the radiologist shows no concerning findings. She is positive for flu B and this is likely the cause of all her symptoms. I informed her of this in considering symptoms started a week ago she is not a candidate for Tamiflu. She will be discharged at this time. She is agreeable to this plan. Lab Data Labs: Lab Results 10/12/23 Range/Units 20:35 SARS-CoV-2 (PCR) Negative SARS-CoV-2 (Negative) Influenza Type A (PCR) Negative PCR FLU A (Negative) Influenza Type B (PCR) POSITIVE PCR FLU B A (Negative) RSV (PCR) Negative PCR RSV (Negative) Imaging Data Chest x-ray: Attestation: I have reviewed the pertinent imaging results. Radiologist's impression: No acute or significant findings. Dictated by Flakito Grace MD @ 10/12/2023 9:25:37 PM Discharge Plan Discharge Clinical Impression: Influenza Patient Disposition: Home, Self-Care Condition: Stable Instructions: Influenza (DC) Additional Instructions: You have fluid is likely the cause of all your symptoms. Make sure you stay well hydrated symptoms were gradually resolve on around. Chest x-ray showed no signs of pneumonia. Return to emergency department for new or worsening symptoms. Prescriptions: No Action spironolactone 50 mg tablet 50 mg PO DAILY Follow Up/Referrals: Kaye Aguero PA-C [Primary Care Provider] - Stand Alone Forms: [employer] Info Instructions
[2023-10-12 21:54] VITALS: BP 125/78; PULSE 79; RESP 16; TEMP 37.5; O2SAT 95
[2023-10-12 21:55] VITALS: BP 125/78; PULSE 79; RESP 16; TEMP 37.5
== END 2023-10-12 21:55 | disposition home or self-care (01) ==
PROVIDERS: Emergency Provider Student in an Organized Health Care Education/Training Program; PCP Physician Assistant Medical
DX: J10.1 Influenza due to other identified influenza virus with other respiratory manifestations (principal)
CPT/HCPCS: 71046; 87631; 99282; 99283

== ENCOUNTER 2025-05-07 12:33 | Outpatient (CLI) | payer OTHER, SELFPAY ==
[2025-05-07 16:44] LABS: Bacterial Vaginosis* Negative (Negative); Candida glab/krus NOT DETECTED (No Detected)
== END 2025-05-07 12:34 | disposition home or self-care (01) ==
LOC: NFLDREF 12:33
PROVIDERS: PCP Physician Assistant Medical; Visit Provider Registered Nurse
DX: N89.8 Other specified noninflammatory disorders of vagina (principal)
CPT/HCPCS: 81513; 87481; 87491; 87591; 87661